=== PATIENT | female | born 1995 | race African-American/Black ===

== ENCOUNTER 2022-03-09 12:09 | Emergency (ER) | payer OTHER ==
[~2022-03-09 12:09] MED LIST: CALCIUM CARBON600 MG PO; FLAGYL500 MG PO; FOLIC ACID1 M1 PO; PREDNISONE 20MG20 MG PO; SERTRALINE HCL50 MG PO; TAMIFLU 75MG CA75 MG PO
[2022-03-09 13:41] LABS: BASOPHIL 0.2 % (0-2); EOSINOPHIL 0.2 % (0-5); HCT 41.1 % (37.0-47.0); HGB 13.4 g/dl (12.5-16.0); LYMPHOCYTE 20.3 % (15-48); MCH 28.1 pg (25.0-31.0); MCHC 32.6 g/dL (32.0-36.0); MCV 86.2 fL (78.0-100.0); MONOCYTE 2.9 % (0-12); MPV 8.9 fL (6.0-9.5); NEUTROPHIL 75.9 % (41-80); NRBC 0; PLT 298 K/uL (150-400); RBC 4.77 M/uL (4.20-5.40); RDW 12.3 % (11.5-14.0); WBC 12.1 K/uL (4.0-10.5)
[2022-03-09 13:44] LABS: INR 1.05 (0.9-1.2); PROTHROMBIN TIME 13.4 SECONDS (11.9-13.9)
[2022-03-09 13:45] LABS: PTT 25.5 SECONDS (24.9-34.6)
[2022-03-09 14:01] LABS: BILIRUBIN NEGATIVE (NEGATIVE); BLOOD NEGATIVE Ery/uL (NEGATIVE); CLARITY CLEAR (CLEAR); COLOR YELLOW (YELLOW); GLUCOSE (U) NORMAL (NORMAL); LEUKOCYTES NEGATIVE Leu/uL (NEGATIVE); NITRITE NEGATIVE (NEGATIVE); PROTEIN NEGATIVE (NEGATIVE); SPECIFIC GRAVITY >=1.030 (1.001-1.030)
[2022-03-09 14:01] LABS: CORONAVIRUS 2019 SARS-COV-2 NEGATIVE (NEGATIVE); INFLUENZA A NAA NEGATIVE (NEGATIVE)
[2022-03-09 14:05] LABS: ALBUMIN 3.3 g/dL (3.4-5.0); ALKALINE PHOSHATASE 106 U/L (46-116); AST 12 U/L (15-37); BILIRUBIN - TOTAL 0.9 mg/dL (0.2-1.0); BUN 11 mg/dL (7-18); CHLORIDE 105 mmol/L (98-107); CO2 (BICARBONATE) 26 mmol/L (21-32); CREATININE 0.88 mg/dL (0.51-0.95); GLOBULIN (CALCULATION) 3.6 g/dL; GLUCOSE 87 mg/dL (74-106); POTASSIUM 3.9 mmol/L (3.5-5.1); TOTAL PROTEIN 6.9 g/dL (6.4-8.2)
[2022-03-09 14:06] LABS: ALT 14 U/L (14-59)
[2022-03-09 14:08] LABS: AMPHETAMINES NEGATIVE (NEGATIVE); BARBITURATES NEGATIVE (NEGATIVE); ECSTASY (MDMA) NEGATIVE (NEGATIVE); MARIJUANA (THC) NEGATIVE (NEGATIVE); METHADONE NEGATIVE (NEGATIVE); OPIATES NEGATIVE (NEGATIVE); OXYCODONE NEGATIVE (NEGATIVE)
== END 2022-03-09 16:00 | disposition left against medical advice (07) ==
LOC: FER 12:09
PROVIDERS: Internal Medicine
DX: S00.03XA Contusion of scalp, initial encounter (principal); R55 Syncope and collapse; M54.2 Cervicalgia; J45.909 Unspecified asthma, uncomplicated; Z87.891 Personal history of nicotine dependence; W19.XXXA Unspecified fall, initial encounter; Y92.512 Supermarket, store or market as the place of occurrence of the external cause; Z53.29 Procedure and treatment not carried out because of patient's decision for other reasons; Z20.822 Contact with and (suspected) exposure to COVID-19; Z28.311 Partially vaccinated for COVID-19
CPT/HCPCS: 36415; 70450; 72125; 72128; 72131; 80053; 80305; 81003; 83605; 84145; 85025; 85610; 85730; G0480; J2550; J7030; J7120; U0002